=== PATIENT | male | born 1995 | race African-American/Black ===

== ENCOUNTER 2020-04-25 17:59 | Emergency (ER) | payer OTHER ==
[~2020-04-25] VITALS: Ht 182.9 cm; Wt 118.2 kg
[2020-04-25] MEDS ORDERED: IBUPROFEN 800 MG TABLET PO ONE (18:45)
[2020-04-25 19:58] VITALS: BP 140/80
== END 2020-04-25 19:57 | disposition home or self-care (01) ==
LOC: EMS 17:59
DX: S83.91XA Sprain of unspecified site of right knee, initial encounter (principal); W19.XXXA Unspecified fall, initial encounter; Y93.89 Activity, other specified; Y92.89 Other specified places as the place of occurrence of the external cause; Y99.8 Other external cause status
CPT/HCPCS: 29530